=== PATIENT | male | born 1950 | race Caucasian/White ===

== ENCOUNTER 2016-11-28 14:46 | Emergency (ER) | payer MEDICARE, OTHER | END 2016-11-28 17:25 | disposition home or self-care (01) | DX: F32.9 Major depressive disorder, single episode, unspecified (principal); R45.851 Suicidal ideations; F31.9 Bipolar disorder, unspecified; F43.10 Post-traumatic stress disorder, unspecified; I10 Essential (primary) hypertension; E11.9 Type 2 diabetes mellitus without complications; Z79.4 Long term (current) use of insulin; I25.10 Atherosclerotic heart disease of native coronary artery without angina pectoris; Z79.82 Long term (current) use of aspirin | CPT/HCPCS: 36415; 80053; 80306; 81003; 83690; 84443; 85025; 99283; G0480 ==

== ENCOUNTER 2017-03-02 21:53 | Outpatient (CLI) | payer MEDICARE, OTHER | END 2017-03-02 21:54 | disposition critical access hospital (66) | DX: R41.82 Altered mental status, unspecified (principal); R26.81 Unsteadiness on feet; V58.5XXA Driver of pick-up truck or van injured in noncollision transport accident in traffic accident, initial encounter; Y92.414 Local residential or business street as the place of occurrence of the external cause | CPT/HCPCS: A0425; A0429 ==

== ENCOUNTER 2017-03-02 22:11 | Emergency (ER) | payer MEDICARE, OTHER ==
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
[2017-03-02 22:47] LABS: BASOPHILS % (AUTO) 0.4 %; EOSINOPHILS # (AUTO) 0.1 10^3/uL (0.0-0.7); EOSINOPHILS % (AUTO) 1.7 %; HCT - HEMATOCRIT 42.4 % (42.0-52.0); MEAN CORPUSCULAR HGB CONC 35.4 g/dL (32.0-36.0); MEAN CORPUSCULAR VOLUME 87.5 fL (80.0-94.0); MEAN PLATELET VOLUME 8.3 fL (7.4-11.4); MONOCYTES # (AUTO) 0.8 10^3/uL (0.0-1.0); MONOCYTES % (AUTO) 9.4 %; NEUTROPHILS # (AUTO) 5.7 10^3/uL (1.5-6.6); NEUTROPHILS % (AUTO) 65.5 %; RED BLOOD COUNT 4.85 10^6/uL (4.70-6.10); RED CELL DISTRIBUTION WIDTH 13.1 % (12.0-15.0); UNCORRECTED WHITE BLOOD COUNT 8.7 x10^3/uL; WHITE BLOOD COUNT 8.7 x10^3/uL (4.8-10.8)
[2017-03-02 23:08] LABS: ALBUMIN/GLOBULIN RATIO 1.4 (1.0-2.2); BILIRUBIN,TOTAL 0.3 mg/dL (0.2-1.0); BUN - BLOOD UREA NITROGEN 21 mg/dL (6-20); CALCIUM 9.6 mg/dL (8.5-10.3); CARBON DIOXIDE - CO2 27 mmol/L (21-32); CHLORIDE 104 mmol/L (101-111); CREATININE 0.7 mg/dL (0.6-1.2); GFR - MDRD 112 (>89); GLUCOSE 208 mg/dL (70-100); LIPASE 38 U/L (22-51); SODIUM 137 mmol/L (135-145); TOTAL PROTEIN 7.1 g/dL (6.7-8.2)
--- NOTE | 2017-03-02 23:56 | CT Preliminary Report ---
Exam: CT Head W/O IMPRESSION: No CT evidence of acute intracranial abnormality, specifically no CT evidence of acute infarct, intra cranial hemorrhage, mass effect, midline shift, or hydrocephalus. [facility] SITE ID: [id number]
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
--- NOTE | 2017-03-03 00:06 | CT Preliminary Report ---
Exam: CT Cervical Spine W/O IMPRESSION: 1. No evidence of acute fracture or malalignment in the cervical spine. No prevertebral soft tissue s welling. 2. Moderate to severe multilevel degenerative spondylosis, as detailed above. 3. Scattered mildly prominent cervical lymph nodes at multiple stations bilaterally, nonspecific, may be reactive. [facility] SITE ID: [id number]
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
[2017-03-03 00:09] VITALS: BP 143/80
== END 2017-03-03 00:25 | disposition home or self-care (01) ==
LOC: EDUNIT# → EDBD → ED 22:11
DX: S00.511A Abrasion of lip, initial encounter (principal); S09.90XA Unspecified injury of head, initial encounter; V48.5XXA Car driver injured in noncollision transport accident in traffic accident, initial encounter; Y92.488 Other paved roadways as the place of occurrence of the external cause; R03.0 Elevated blood-pressure reading, without diagnosis of hypertension; F31.9 Bipolar disorder, unspecified; I10 Essential (primary) hypertension; E78.00 Pure hypercholesterolemia, unspecified; I25.10 Atherosclerotic heart disease of native coronary artery without angina pectoris; E11.9 Type 2 diabetes mellitus without complications; Z79.4 Long term (current) use of insulin; G47.30 Sleep apnea, unspecified; Z79.82 Long term (current) use of aspirin
CPT/HCPCS: 36415; 70450; 72125; 80053; 80320; 83690; 85025; 99283; 99284

== ENCOUNTER 2018-02-01 13:13 | Outpatient (CLI) | payer MEDICARE, OTHER | END 2018-02-01 13:14 | disposition critical access hospital (66) | LOC: EMS 13:13 | PROVIDERS: ATTEND Surgery | DX: R45.851 Suicidal ideations (principal); R45.850 Homicidal ideations | CPT/HCPCS: A0425; A0429 ==

== ENCOUNTER 2018-02-01 13:32 | Emergency (ER) | payer MEDICARE, OTHER ==
--- NOTE | 2018-02-01 14:07 | ED Physician Documentation ---
PD HPI MHE - Stated complaint Stated Complaint: SI - Chief complaint Chief Complaint: MHE - History obtained from History obtained from: Patient - History of Present Illness Primary symptom: Suicidal ideation (67-year-old gentleman with history of bipolar disorder presents with depression and paranoia regarding relationship with a female friend. He is in assisted living facility and his medications are administered to him. He was talking to an compensation administrator there and stated suicidal ideation, he said he just wanted help and does not currently feel suicidal.) Review of Systems Ten Systems: 10 systems reviewed and negative Constitutional: denies: Fever, Chills Cardiac: denies: Chest pain / pressure, Palpitations Respiratory: denies: Dyspnea, Cough GI: reports: Constipation (4 days). denies: Abdominal Pain, Nausea, Vomiting PD PAST MEDICAL HISTORY - Past Medical History Past Medical History: Yes Cardiovascular: Hypertension, High cholesterol, Coronary artery disease Respiratory: Sleep apnea Endocrine/Autoimmune: Type 2 diabetes GI: GERD HEENT: Chronic vision loss Psych: Bipolar disorder - Past Surgical History Past Surgical History: Yes Ortho: Hip replacement - Present Medications Home Medications: Ambulatory Orders Medication Instructions Recorded Confirmed Insulin Glargine,Hum.rec.anlog 25 unit SQ BID 08/18/13 02/03/18 [Lantus] Atorvastatin Calcium 20 mg PO DAILY 02/01/18 02/03/18 Latanoprost 0.005% Ophth Drops 1 drops EACHEYE ACHS 02/01/18 02/03/18 [Xalatan Ophth Drops] Lisinopril 10 mg PO DAILY 02/01/18 02/03/18 [place] Carbonate [[place] 450 mg PO DAILY PM 02/01/18 02/03/18 Carbonate ER] Losartan Potassium 50 mg PO DAILY 02/01/18 02/03/18 Pravastatin [Pravachol] 40 mg PO DAILY 02/01/18 02/03/18 Rivastigmine 4.6 mg TD DAILY 02/01/18 02/03/18 Trazodone HCl 12.5 mg PO PRN PRN 02/01/18 02/03/18 amLODIPine [Norvasc] 10 mg PO DAILY 02/01/18 02/03/18 - Allergies Allergies/Adverse Reactions: Allergies Allergy/AdvReac Type Severity Reaction Status Date / Time quetiapine Allergy Unknown Verified 02/03/18 09:27 lamotrigine AdvReac Intermediate Hallucinati Verified 02/01/18 19:33 ons - Social History Does the pt smoke?: No Smoking Status: Never smoker Does the pt drink ETOH?: No Does the pt have substance abuse?: No - Family History Family history: reports: Non contributory - Immunizations Immunizations are current?: Yes PD ED PE NORMAL - Vitals Vital signs reviewed: Yes - General General: Alert and oriented X 3, No acute distress - HEENT HEENT: PERRL, EOMI - Neck Neck: Supple, no meningeal sign, No bony TTP - Cardiac Cardiac: RRR, No murmur - Respiratory Respiratory: No respiratory distress, Clear bilaterally - Abdomen Abdomen: Soft, Non tender - Back Back: No CVA TTP, No spinal TTP - Derm Derm: Normal color, Warm and dry - Extremities Extremities: No edema, No calf tenderness / cord - Neuro Neuro: Alert and oriented X 3, Normal speech - Psych Psych: Normal mood, Normal affect Results - Vitals Vitals: Vital Signs - 24 hr 02/02/18 02/03/18 02/03/18 15:27 03:53 07:25 Temperature 36.0 C L Heart Rate 84 78 70 Respiratory 14 16 18 Rate Blood Pressure 129/84 H 122/69 153/80 H O2 Saturation 100 99 97 Oxygen O2 Source [With Activity] Room air O2 Source Room air - Labs Labs: Laboratory Tests 02/01/18 02/01/18 02/01/18 14:17 14:17 14:17 WBC 11.1 H RBC 4.35 L Hgb 13.7 L Hct 39.1 L MCV 90.0 MCH 31.5 H MCHC 35.0 RDW 13.2 Plt Count 207 MPV 7.9 Neut # 9.0 H Lymph # 1.2 L [place] # 0.7 Eos # 0.1 Baso # 0.0 Absolute Nucleated RBC 0.00 Nucleated RBC % 0.0 Sodium 136 Potassium 3.7 Chloride 105 Carbon Dioxide 24 Anion Gap 7.0 BUN 16 Creatinine 0.6 Estimated GFR (MDRD) 134 Glucose 121 H Calcium 9.1 Total Bilirubin 0.7 AST 19 ALT 20 Alkaline Phosphatase 86 Total Protein 6.7 Albumin 3.7 Globulin 3.0 Albumin/Globulin Ratio 1.2 Lipase 28 TSH 1.37 Last Dose Date Last Dose Time Salicylates < 6.0 Urine Opiates Screen Ur Oxycodone Screen Urine Methadone Screen Ur Propoxyphene Screen Acetaminophen < 10 L Ur Barbiturates Screen Ur Tricyclics Screen Ur Phencyclidine Scrn Ur Amphetamine Screen U Methamphetamines Scrn U Benzodiazepines Scrn [place] Urine Cocaine Screen U Cannabinoids Screen Ethyl Alcohol < 5.0 02/01/18 02/01/18 14:17 14:52 WBC RBC Hgb Hct MCV MCH MCHC RDW Plt Count MPV Neut # Lymph # [place] # Eos # Baso # Absolute Nucleated RBC Nucleated RBC % Sodium Potassium Chloride Carbon Dioxide Anion Gap BUN Creatinine Estimated GFR (MDRD) Glucose Calcium Total Bilirubin AST ALT Alkaline Phosphatase Total Protein Albumin Globulin Albumin/Globulin Ratio Lipase TSH Last Dose Date UNK Last Dose Time UNK Salicylates Urine Opiates Screen NEGATIVE Ur Oxycodone Screen NEGATIVE Urine Methadone Screen NEGATIVE Ur Propoxyphene Screen NEGATIVE Acetaminophen Ur Barbiturates Screen NEGATIVE Ur Tricyclics Screen NEGATIVE Ur Phencyclidine Scrn NEGATIVE Ur Amphetamine Screen NEGATIVE U Methamphetamines Scrn NEGATIVE U Benzodiazepines Scrn NEGATIVE [place] 0.26 Urine Cocaine Screen NEGATIVE U Cannabinoids Screen NEGATIVE Ethyl Alcohol PD MEDICAL DECISION MAKING - ED course ED course: He is not suicidal now but he was earlier, he says it was mostly a gesture. There is some dementia although it is not too bad so hard to piece out how truthful previous statements were. Evaluated by social work and felt he did not necessarily meet criteria for inpatient stay and the [facility] was informally contacted who agreed. However my understanding secondhand is that [facility] will not take him back as his behavioral needs are too high. As such he is boarding in the emergency department until other arrangements can be made. No emergency medical condition is identified. For a couple of days that social security benefits interviewer could not find an appropriate disposition for him, eventually on the he was accepted to [facility] living in [place] and I wrote admission orders. Departure - Departure Disposition: 01 Home, Self Care Clinical Impression: Depressive disorder Condition: Good Record reviewed to determine appropriate education?: Yes Instructions: ED Depression Comments: Followup with the [facility] for cousnelling and ongoing care. Return if worse.
[2018-02-01 14:26] LABS: BASOPHILS % (AUTO) 0.3 %; EOSINOPHILS # (AUTO) 0.1 10^3/uL (0.0-0.7); EOSINOPHILS % (AUTO) 0.5 %; HGB - HEMOGLOBIN 13.7 g/dL (14.0-18.0); LYMPHOCYTES # (AUTO) 1.2 10^3/uL (1.5-3.5); MEAN CORPUSCULAR HEMOGLOBIN 31.5 pg (27.0-31.0); MEAN PLATELET VOLUME 7.9 fL (7.4-11.4); MONOCYTES # (AUTO) 0.7 10^3/uL (0.0-1.0); MONOCYTES % (AUTO) 6.7 %; NEUTROPHILS % (AUTO) 81.5 %; PLT - PLATELET COUNT 207 10^3/uL (130-450); RED BLOOD COUNT 4.35 10^6/uL (4.70-6.10); RED CELL DISTRIBUTION WIDTH 13.2 % (12.0-15.0); WHITE BLOOD COUNT 11.1 x10^3/uL (4.8-10.8)
[2018-02-01 14:41] LABS: ALBUMIN 3.7 g/dL (3.2-5.5); ALBUMIN/GLOBULIN RATIO 1.2 (1.0-2.2); ALKALINE PHOSPHATASE 86 IU/L (42-121); ALT ALANINE AMINOTRANSFERASE 20 IU/L (10-60); AST ASPARTATE AMINOTRANSFERASE 19 IU/L (10-42); BILIRUBIN,TOTAL 0.7 mg/dL (0.2-1.0); BUN - BLOOD UREA NITROGEN 16 mg/dL (6-20); CALCIUM 9.1 mg/dL (8.5-10.3); CARBON DIOXIDE - CO2 24 mmol/L (21-32); CHLORIDE 105 mmol/L (101-111); CREATININE 0.6 mg/dL (0.6-1.2); GFR - MDRD 134 (>89); GLUCOSE 121 mg/dL (70-100); LIPASE 28 U/L (22-51); SALICYLATE < 6.0 mg/dL; SODIUM 136 mmol/L (135-145); TOTAL PROTEIN 6.7 g/dL (6.7-8.2)
[2018-02-01 14:43] LABS: ACETAMINOPHEN < 10 ug/mL (10-30)
[2018-02-01 14:55] LABS: MUDS CUTOFF CONCENTRATIONS CUTOFF CONC BELOW:
[2018-02-01 15:10] LABS: AMPHETAMINE SCREEN,URINE NEGATIVE (NEGATIVE); BENZODIAZEPINES SCREEN, URINE NEGATIVE (NEGATIVE); COCAINE SCREEN URINE NEGATIVE (NEGATIVE); METHADONE SCREEN, URINE NEGATIVE (NEGATIVE); METHAMPHETAMINES SCREEN, URINE NEGATIVE (NEGATIVE); OPIATE SCREEN, URINE NEGATIVE (NEGATIVE); OXYCODONE SCREEN, URINE NEGATIVE (NEGATIVE); PROPOXYPHENE SCREEN, URINE NEGATIVE (NEGATIVE); TRICYCLIC ANTIDEPRESSANT,URINE NEGATIVE (NEGATIVE)
[2018-02-01 15:51] LABS: LITHIUM 0.26 mmol/L
[2018-02-01] MEDS ORDERED: LITHIUM 150 MG CAPSULE PO STA (19:45)
[2018-02-01] MEDS ORDERED: traZODone 50 MG TABLET PO STA (20:29)
[2018-02-02] MEDS ORDERED: LORazepam 0.5 MG TABLET PO STA ×2 (08:03→21:40)
[2018-02-02] MEDS ORDERED: LITHIUM 150 MG CAPSULE PO STA (21:40)
[2018-02-02] MEDS ORDERED: traZODone 50 MG TABLET PO STA (21:40)
[2018-02-03 12:29] VITALS: BP 138/76
== END 2018-02-03 12:29 | disposition home or self-care (01) ==
LOC: EDUNIT# → ED 13:32
DX: F31.9 Bipolar disorder, unspecified (principal); R45.851 Suicidal ideations; I10 Essential (primary) hypertension; E78.00 Pure hypercholesterolemia, unspecified; E11.9 Type 2 diabetes mellitus without complications; K21.9 Gastro-esophageal reflux disease without esophagitis; Z79.4 Long term (current) use of insulin
CPT/HCPCS: 36415; 80053; 80178; 80306; 80307; 83690; 84443; 85025; 99284; A9270; G0480; 80320; 80329